=== PATIENT | female | born 1990 | race American Indian/Alaskan Native ===

== ENCOUNTER 2016-12-05 13:53 | Emergency (ER) | payer MEDICAID ==
[2016-12-05 14:15] VITALS: BP 110/60
--- NOTE | 2016-12-06 04:24 | ED Elopement Review ---
ED Pt Elopement review - Call Back decision Pt Call Back Decision: No action required
== END 2016-12-05 14:45 | disposition left against medical advice (07) ==
LOC: ED 13:53
DX: R42 Dizziness and giddiness (principal); Z53.21 Procedure and treatment not carried out due to patient leaving prior to being seen by health care provider